=== PATIENT | male | born 1965 | race Caucasian/White ===

== ENCOUNTER 2017-02-14 08:16 | Emergency (ER) | payer MEDICAID ==
[~2017-02-14] VITALS: Ht 175.3 cm; Wt 84.1 kg
[~2017-02-14 08:16] MED LIST: DSS100 PO; ESOM20CA31 PO; FERR-89 PO
[2017-02-14] MEDS ORDERED: PredniSONE 20 MG TABLET PO ONE (09:45)
[2017-02-14] MEDS ORDERED: DiphenhydrAMINE HCL 50 MG/ML VIAL IM ONE (09:45)
[2017-02-14 12:09] VITALS: BP 130/90
== END 2017-02-14 13:47 | disposition home or self-care (01) ==
LOC: EMS 08:17
DX: L25.9 Unspecified contact dermatitis, unspecified cause (principal); K21.9 Gastro-esophageal reflux disease without esophagitis; I10 Essential (primary) hypertension
CPT/HCPCS: 96372; 99283; J1200; J7512

== ENCOUNTER 2017-03-20 09:05 | Emergency (ER) | payer MEDICAID ==
[~2017-03-20] VITALS: Ht 175.3 cm; Wt 100.0 kg
[2017-03-20] MEDS ORDERED: BACITRACIN 0.9 GM PACKET OINTMENT TP ONE (10:45)
[2017-03-20] MEDS ORDERED: HYDROCODONE/ACETAMINOPHEN 10-325 MG TABLET PO ONE (10:45)
[2017-03-20] MEDS ORDERED: LIDOCAINE HCL/PF 1% 2 ML VIAL IM ONE (11:00)
[2017-03-20] MEDS ORDERED: CefTRIAXone SODIUM 1 GM/VIAL IM ONE (11:00)
[2017-03-20 12:33] VITALS: BP 129/77
== END 2017-03-20 12:49 | disposition home or self-care (01) ==
LOC: EMS 09:07
DX: S83.92XA Sprain of unspecified site of left knee, initial encounter (principal); S81.801A Unspecified open wound, right lower leg, initial encounter; L03.115 Cellulitis of right lower limb; E11.9 Type 2 diabetes mellitus without complications; I10 Essential (primary) hypertension; K21.9 Gastro-esophageal reflux disease without esophagitis; X58.XXXA Exposure to other specified factors, initial encounter; Y93.89 Activity, other specified; Y92.89 Other specified places as the place of occurrence of the external cause; Y99.8 Other external cause status
CPT/HCPCS: 73562; 96372; 99284; J0696; J3490